=== PATIENT | male | born 1985 ===

== ENCOUNTER 2017-04-28 07:05 | Day surgery (SDC) | payer OTHER | END 2017-04-28 13:00 | disposition home or self-care (01) | LOC: AMB-ENDOS 07:05 → EDBD 14:00 → AMB-ENDOS 14:00 | DX: K57.30 Diverticulosis of large intestine without perforation or abscess without bleeding (principal); D12.8 Benign neoplasm of rectum; D12.5 Benign neoplasm of sigmoid colon ==